=== PATIENT | male | born 1965 | race African-American/Black ===

== ENCOUNTER 2021-11-20 01:01 | Emergency (ER) | payer MEDICAID ==
[~2021-11-20] VITALS: Ht 177.8 cm; Wt 72.6 kg
[2021-11-20 01:07] VITALS: BP_SYST 144
[2021-11-20] MEDS ORDERED: GASTROGRAFIN 120 ML ONE (02:37)
[2021-11-20 03:00] VITALS: BP_SYST 129
== END 2021-11-20 03:00 | disposition home or self-care (01) ==
LOC: SED 01:01
DX: K94.23 Gastrostomy malfunction (principal); Z79.899 Other long term (current) drug therapy
CPT/HCPCS: 99284; 43762; 74240; Q9963